=== PATIENT | male | born 1990 | race American Indian/Alaskan Native ===

== ENCOUNTER 2017-06-15 11:09 | Emergency (ER) | payer OTHER ==
[2017-06-15 11:28] VITALS: TEMP 98.5; O2SAT 100; BMI 21.5
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
[2017-06-15 12:55] VITALS: BP 120/72; PULSE 57; RESP 18
== END 2017-06-15 12:55 | disposition home or self-care (01) ==
LOC: ED 11:09
DX: R52 Pain, unspecified (principal)
CPT/HCPCS: 73030; 96372; 99284; J1885